=== PATIENT | female | born 1960 | race Caucasian/White ===

== ENCOUNTER → 2017-07-19 | Outpatient (CLI) | payer OTHER ==
--- NOTE | 2017-07-19 08:44 | REP ---
CT Head without contrast HISTORY: Headache COMPARISON: None There is no intraparenchymal hemorrhage, acute infarct, mass or midline shift. The ventricular system and cortical sulci are dilated consistent with minimal volume loss. There is no extra cerebral collection. There is no fracture. The visualized sinuses are clear. IMPRESSION: Minimal volume loss. Signed by Chas Giang MD 07/19/2017 08:36 A
== END ==
LOC: M RAD 06:37
PROVIDERS: ATTEND Physician Assistant Medical
DX: R51 Headache (principal); R42 Dizziness and giddiness

== ENCOUNTER → 2017-12-30 | Outpatient (CLI) | payer OTHER | LOC: M PLARAD 09:50 | DX: M51.26 Other intervertebral disc displacement, lumbar region (principal); M51.27 Other intervertebral disc displacement, lumbosacral region; M46.1 Sacroiliitis, not elsewhere classified; M47.817 Spondylosis without myelopathy or radiculopathy, lumbosacral region; M54.16 Radiculopathy, lumbar region | CPT/HCPCS: 72148 ==

== ENCOUNTER → 2019-02-09 | Outpatient (CLI) | payer OTHER ==
--- NOTE | 2019-02-09 12:41 | REP ---
MRI brain without contrast: History: Headaches. Comparison CT study July 19, 2017. Comparison brain MRI exam April 23, 2016. Technique: Axial and sagittal imaging planes are utilized for T1 and T2-weighted scans. Sequences include spin-echo, fast spin echo, FLAIR, and diffusion weighted sequences. MRI findings: No bony calvarial lesion is seen. Craniocervical junction and upper cervical cord are normal in appearance. There is mild generalized volume loss. There is no evidence of intracranial hemorrhage, mass, infarct or ischemia. No extra-axial fluid collection is seen. There are minimal paranasal sinus mucosal changes, the most pronounced of which are in the right maxillary sinus. Impression: Mild generalized volume loss again noted. No acute intracranial abnormality. Otherwise negative. Electronically Signed by Sascha Lyle MD 02/09/2019 02:50 P
--- NOTE | 2019-02-09 12:42 | REP ---
MR angiography the brain without contrast: History: Headaches. Comparison brain MR angiography is from April 23, 2016. Technique: 3-D [id number] MR angiography of the brain is acquired in the usual fashion and maximal intensity projection images were generated in rotational format about the vertical and horizontal axes. In addition, source axial T1-weighted images are viewed in cine mode. MR angiographic findings: The left distal vertebral artery is quite small. The basilar artery is tortuous but widely patent. Posterior cerebral and superior cerebellar vessels are normal and symmetric. The left posterior communicator is not seen. The distal internal carotid arteries are unremarkable. The A1 segment on the right is not seen as noted previously. The left A1 segment feeds both anterior cerebral arteries. The middle cerebral arteries are unremarkable. There is no evidence of ashraf aneurysm or arteriovenous malformation. Impression: Absent A1 segment on the right. The posterior communicator on the left is not well seen. Findings are unchanged from the comparison MR angiography. Electronically Signed by Sascha Lyle MD 02/09/2019 02:50 P
== END ==
LOC: M PLARAD 10:49
PROVIDERS: ATTEND Physician Assistant Medical
DX: G31.9 Degenerative disease of nervous system, unspecified (principal)

== ENCOUNTER → 2020-03-06 | Outpatient (REF) | payer OTHER ==
[2020-03-06 16:29] LABS: CREATININE, URINE 85.1 MG/DL; MALB URINE SIEMENS 19.5 MG/L; MAU/CREAT RATIO 22.9 MCG/MG (0.0-30.0)
== END ==
LOC: M LAB REF 15:18
PROVIDERS: ATTEND Nurse Practitioner Family
DX: E11.65 Type 2 diabetes mellitus with hyperglycemia (principal)

== ENCOUNTER → 2021-07-01 | Outpatient (REF) | payer OTHER ==
[2021-07-01 19:08] LABS: CREATININE, URINE 31.3 MG/DL; MALB URINE SIEMENS 5.9 MG/L; MAU/CREAT RATIO 18.8 MCG/MG (0.0-30.0)
== END ==
LOC: M LAB REF 17:21
PROVIDERS: ATTEND Nurse Practitioner Family
DX: E11.65 Type 2 diabetes mellitus with hyperglycemia (principal)

== ENCOUNTER → 2023-01-27 | Outpatient (REF) | payer OTHER ==
[2023-01-27 18:42] LABS: CREATININE, URINE 55.8 MG/DL; MAU/CREAT RATIO 116.4 MCG/MG (0.0-30.0)
== END ==
LOC: M LAB REF 17:12
PROVIDERS: ATTEND Nurse Practitioner Family
DX: E11.65 Type 2 diabetes mellitus with hyperglycemia (principal)